=== PATIENT | male | born 1950 | race Caucasian/White ===

== ENCOUNTER 2016-12-06 23:51 | Emergency (ER) | payer SELFPAY ==
[~2016-12-06] VITALS: Ht 175.3 cm; Wt 93.0 kg
[2016-12-07 02:03] VITALS: BP 144/87
== END 2016-12-07 02:03 | disposition home or self-care (01) ==
LOC: ED 23:51
DX: M25.562 Pain in left knee (principal); Z79.899 Other long term (current) drug therapy; Z98.890 Other specified postprocedural states
CPT/HCPCS: Q0092